=== PATIENT | female | born 1985 | race Two or more races ===

== ENCOUNTER 2024-03-23 08:57 | Outpatient (CLI) | payer OTHER | END 2024-03-23 09:05 | disposition home or self-care (01) | LOC: SONOGRAMA 08:57 | PROVIDERS: ATTEND Obstetrics & Gynecology Reproductive Endocrinology | DX: N82.0 Vesicovaginal fistula (principal) ==

== ENCOUNTER → 2025-02-15 10:29 | Outpatient (CLI) | payer OTHER | END | disposition home or self-care (01) | LOC: PRENATAL 10:29 | PROVIDERS: ATTEND Obstetrics & Gynecology Maternal & Fetal Medicine | DX: O36.80X0 Pregnancy with inconclusive fetal viability, not applicable or unspecified (principal); Z36.82 Encounter for antenatal screening for nuchal translucency; Z14.8 Genetic carrier of other disease; O09.511 Supervision of elderly primigravida, first trimester; Z3A.13 13 weeks gestation of pregnancy ==